=== PATIENT | female | born 1995 | race Two or more races ===

== ENCOUNTER 2024-12-17 20:42 | Inpatient (IN) | payer BC, OTHER ==
[~2024-12-17] VITALS: Ht 165.1 cm; Wt 64.7 kg
--- NOTE | 2024-12-17 21:10 | ED.PDOC ---
History of Present Illness(SKN HPI Comments PATIENT C/O A BEE STING TO RIGHT BICEPT X2 DAYS. DENIES SOB. SWELLING NOTED TO RIGHT ARM. DENIES NUMBNESS OR WEAKNESS FEVER, CHILLS, THROAT SWELLING, DIFFICULTY BREATHING, NAUSEA OR VOMITING Chief Complaint: Insect Bite Time Seen by MD: 20:46 History of Present Illness: Nurses Notes, Medications, Allergies Allergies: Coded Allergies: NO KNOWN ALLERGIES (Unverified , 12/17/24) Home Meds Active Scripts Amoxicillin & Pot Clavulanate (AUGMENTIN TABLET) 875 Mg Tb, 875 MG PO BID for 3 Days, #6 TAB Prov:BREONNA FONG MD 12/19/24 Prednisone (Prednisone) 20 Mg Tab, 40 MG PO DAILY for 3 Days, #6 TAB Prov:BREONNA FONG MD 12/19/24 Information Source: Patient Past Medical History PAST MEDICAL HISTORY: Denies Surgical History: Denies all surgeries FINAL INSPECTOR PAPER History: No Pertinent FINAL INSPECTOR PAPER History Family History Family History: Reviewed,noncontributory to illness Social History Smoker: Non-Smoker Alcohol: Denies ETOH Use Drugs: Denies Drug Use Constitutional: denies: chills, diaphoresis, fatigue, fever, malaise, sweats, weakness, others EENTM: denies: blurred vision, double vision, ear bleeding, ear discharge, ear drainage, ear pain, ear ringing, eye pain, eye redness, hearing loss, mouth pain, mouth swelling, nasal discharge, nose bleeding, nose congestion, nose pain, photophobia, tearing, throat pain, throat swelling, voice changes, others Respiratory: denies: cough, hemoptysis, orthopnea, SOB at rest, shortness of breath, SOB with excertion, stridor, wheezing, others Cardiovascular: denies: chest pain, dizzy spells, diaphoresis, Dyspnea on exertion, edema, irregular heart beat, left arm pain, lightheadedness, palpitations, PND, syncope, others Gastrointestinal: denies: abdomen distended, abdominal pain, blood streaked bowels, constipated, diarrhea, dysphagia, difficulty swallowing, hematemesis, melena, nausea, poor appetite, poor fluid intake, rectal bleeding, rectal pain, vomiting, others Genitourinary: denies: abnormal vagina bleeding, burning, dyspareunia, dysuria, flank pain, frequency, hematuria, incontinence, pain, , vagina discharge, urgency, others Neurological: denies: dizziness, fainting, headache, left sided numbness, left sided weakness, numbness, paresthesia, pre-existing deficit, right sided numbness, right sided weakness, seizure, speech problems, tingling, tremors, weakness, others Musculoskeletal: reports: muscle pain, others (LEFT UPPER ARM SWELLING); denies: back pain, gout, joint pain, joint swelling, muscle stiffness, neck pain Integumetry: reports: wounds (LEFT BICEP); denies: bruises, change in color, change in hair/nails, dryness, laceration, lesions, lumps, rash, others Allergic/Immunocompromised: denies: Difficulty Healing, Frequent Infections, Hives, Itching, others Hematologic/Lymphatic: denies: anemia, blood clots, easy bleeding, easy bruising, swollen glands, others Endocrine: denies: excessive hunger, excessive sweating, excessive thirst, excessive urination, flushing, intolerance to cold, intolerance to heat, unexplained weight gain, unexplained weight loss, others Psychiatric: denies: anxiety, bipolar disorder, depression, hopeless, panic disorder, schizophrenia, sleepless, suicidal, others Physical Exam General Appearance: No Apparent Distress, Normal HEENT: Normal ENT Inspection, Pharynx Normal, TMs Normal Neck: Full Range of Motion, Non-Tender Respiratory: Lungs Clear, No Respiratory Distress, Normal Breath Sounds Cardiovascular: No Edema, No JVD, No Murmur, No Gallop, Normal Peripheral Pulses, Regular Rate/Rhythm Breast Exam: Deferred Gastrointestinal: No Organomegaly, Non Tender, No Pulsatile Mass, Normal Bowel Sounds, Soft Genitalia: Deferred Pelvic: Deferred Rectal: Deferred Extremities: Normal capillary refill, Normal inspection, Normal range of motion, Non-tender, No pedal edema Musculoskeletal : Apperance: Normal Neurologic: Alert, No Motor Deficits, Normal Affect, Normal Mood, No Sensory Deficits Cerebellar Function: Normal Reflexes: Normal Skin: Dry, Normal Color, Warm, Wounds (RIGHT ANTERIOR BICEP NOTED PUNCTURE WOUND WITH SURROUNDING MODERATE EDEMA EXTENDING TO ELBOW AND FORERAM MODERATE TENDERNESS TRACE ERYTHEMA NO NOTED DRAINAGE OR FOREIGN BODY/STINGER DECREASE MOTOR DUE TO EDEMA AT ELBOW. STRENGTH AND SENSORY INTACT POSITIVE RADIAL PULSE) Lymphatic: No Adenopathy Was a procedure done? Was a procedure done?: No Differential Diagnosis (INTG) Differential Diagnosis: Cellulitis, Insect Envenomation, Puncture Wound Differential Diagnosis: Abscess X-Ray, Labs, Meds, VS Vital Signs Date Time Temp Pulse Resp B/P (MAP) Pulse Ox O2 Delivery O2 Flow Rate FiO2 12/18/24 04:34 98.1 58 18 107/70 (82) 97 98.1 12/18/24 00:15 98.5 55 15 107/62 (77) 99 98.5 12/17/24 21:08 97.8 62 18 116/69 (85) 99 97.8 Lab Test 12/18/24 00:40 Range/Units White Blood Count 5.2 4.4-10.8 10^3/uL Red Blood Count 4.33 4.0-5.20 10^6/uL Hemoglobin 13.0 12.2-16.2 g/dL Hematocrit 39.2 36.0-46.0 % Mean Corpuscular Volume 90.5 80.0-100.0 fL Mean Corpuscular Hemoglobin 30.1 28.0-32.0 pg Mean Corpuscular Hemoglobin Concent 33.3 32.0-36.0 g/dL Red Cell Distribution Width 13.2 11.8-14.3 % Platelet Count 229 140-450 10^3/uL Mean Platelet Volume 9.2 6.9-10.8 fL Neutrophils (%) (Auto) 84.0 H 37.0-80.0 % Lymphocytes (%) (Auto) 12.7 10.0-50.0 % Monocytes (%) (Auto) 1.8 0.0-12.0 % Eosinophils (%) (Auto) 1.3 0.0-7.0 % Basophils (%) (Auto) 0.2 0.0-2.0 % Neutrophils # (Auto) 4.4 1.6-8.6 10 ^3/uL Lymphocytes # (Auto) 0.7 0.4-5.4 10 ^3/uL Monocytes # (Auto) 0.1 0-1.3 10 ^3/uL Eosinophils # (Auto) 0.1 0-0.8 10 ^3/uL Basophils # (Auto) 0 0-0.2 10 ^3/uL Nucleated Red Blood Cells 0.1 % Sodium Level 142 136-145 mmol/L Potassium Level 3.6 3.5-5.1 mmol/L Chloride Level 112 H 98-107 mmol/L Carbon Dioxide Level 22 20-31 mmol/L Anion Gap 8 5-15 Blood Urea Nitrogen 17 9-23 mg/dL Creatinine 0.94 0.550-1.02 mg/dL Glomerular Filtration Rate Calc 85 >90 mL/min BUN/Creatinine Ratio 18.1 10.0-20.0 Serum Glucose 103 74-106 mg/dL Calcium Level 8.5 L 8.7-10.4 mg/dL Total Bilirubin 0.5 0.2-1.0 mg/dL Aspartate Amino Transferase (AST) 24 13-40 U/L Alanine Aminotransferase (ALT) 14 7-40 U/L Alkaline Phosphatase 49 46-116 U/L Total Protein 6.6 5.7-8.2 g/dL Albumin 4.2 3.2-4.8 g/dL X-Ray, Labs, Meds, VS Comment COURSE: EXTERNAL MEDICAL RECORDS: NONE INDEPENDENT HISTORIANS: NONE SOCIAL DETERMINANTS OF HEALTH: NONE LABS ORDERED: CBC AND CMP REVIEWED AND INTERPRETED RESULTS: PENDING IMAGING ORDERED: NONE (CONSIDER CT RIGHT ARM TREATMENTS ORDERED: Solu-Medrol 125 mg IV push Benadryl 25 mg IV push Pepcid 20 mg IV push Rocephin 1 g IV piggyback Normal saline a 1000 mL bolus PATIENT'S CASE AND RESULTS HAVE BEEN DISCUSSED WITH PATIENT AND THE ED ATTENDING PHYSICIAN THEY AGREE WITH MY PLAN OF CARE: ADMIT INPATIENT FOR IV ANTIBIOTICS AND MONITORING RIGHT UPPER EXTREMITY FOR COMPARTMENT SYNDROME Time of 1ST Reevaluation: 21:09 Reevaluation 1ST: Unchanged Time of 2ND Reevaluation: 23:50 Reevaluation 2ND: Unchanged Time of 3RD Reevaluation: 03:23 Reevaluation 3RD: Unchanged Patient Education/Counseling: Diagnosis, Treatment, Prognosis, Need For Follow Up Family Education/Counseling: No Family Present SEPSIS Sepsis Screen Physician Orders Heplock Iv (12/17/24 ) Code Status (12/18/24 04:25) Oxygen Per Hour (12/18/24 04:25) Vital Signs Date Time Temp Pulse Resp B/P (MAP) Pulse Ox O2 Delivery O2 Flow Rate FiO2 12/18/24 04:34 98.1 58 18 107/70 (82) 97 98.1 12/18/24 00:15 98.5 55 15 107/62 (77) 99 98.5 12/17/24 21:08 97.8 62 18 116/69 (85) 99 97.8 Laboratory Tests Test 12/18/24 00:40 White Blood Count 5.2 10^3/uL (4.4-10.8) Departure 1 Departure Time of Disposition: 00:05 Impression: Primary Impression: Bite or sting by insect with infection Additional Impression: Edema of right upper extremity Disposition: ADMITTED INPATIENT Condition: Stable e-Prescriptions Amoxicillin & Pot Clavulanate (AUGMENTIN TABLET) 875 Mg Tb 875 MG PO BID for 3 Days, #6 TAB Prov: BREONNA FONG MD 12/19/24 Prednisone (Prednisone) 20 Mg Tab 40 MG PO DAILY for 3 Days, #6 TAB Prov: BREONNA FONG MD 12/19/24 Discharged With: Self Critical Care Note Critical Care Time?: No Stability Stability form required: ANNALISE Cee Dec 17, 2024 21:10
[2024-12-17] MEDS: FAMOTIDINE (10MG/ML) 2ML VL IV ONE (21:59)
[2024-12-17] MEDS: methylPREDNISolone SOD SUCC 125 MG/2 ML VL IV ONE (21:59)
[2024-12-17] MEDS: diphenhdrAMINE HCL 50 MG/1 ML VL IV ONE (22:00)
[2024-12-17] MEDS: cefTRIAXone 1GM/50ML D5W 50 ML IV ONE (22:00)
[2024-12-17] MEDS: SODIUM CHLORIDE 0.9% 1,000 ML IV ONE (22:16)
[2024-12-18 00:15] VITALS: BP 107/62; PULSE 55; RESP 15; TEMP 98.5; O2SAT 99
[2024-12-18 00:55] LABS: Hematocrit 39.2 % (36.0-46.0); Hemoglobin 13.0 g/dL (12.2-16.2); Mean Corpuscular Hemoglobin 30.1 pg (28.0-32.0); Mean Corpuscular Volume 90.5 fL (80.0-100.0); Nucleated Red Blood Cells % 0.1 %
[2024-12-18 01:07] LABS: Alanine Aminotransferase 14 U/L (7-40); Albumin 4.2 g/dL (3.2-4.8); Alkaline Phosphatase 49 U/L (46-116); Anion Gap 8 (5-15); BUN/Creatinine Ratio 18.1 (10.0-20.0); Blood Urea Nitrogen 17 mg/dL (9-23); Carbon Dioxide 22 mmol/L (20-31); Glucose 103 mg/dL (74-106); Potassium 3.6 mmol/L (3.5-5.1); Sodium 142 mmol/L (136-145); Total Protein 6.6 g/dL (5.7-8.2)
[2024-12-18 01:08] LABS: Bilirubin, Total 0.5 mg/dL (0.2-1.0)
[2024-12-18 01:18] LABS: Calcium 8.5 mg/dL (8.7-10.4); Chloride 112 mmol/L (98-107)
[2024-12-18] MEDS: KETOROLAC TROMETH 30 MG/ML 1ML VIAL IV ONE (04:05)
[2024-12-18] MEDS: CLINDAMYCIN 600MG IV 50 ML IV ONE (04:06)
[2024-12-18] MEDS ORDERED: ACETAMINOPHEN 325 MG TAB PO PRN (04:30)
[2024-12-18] MEDS ORDERED: ONDANSETRON HCL 4 MG/2 ML VIAL IV PRN (04:30)
[2024-12-18] MEDS ORDERED: HYDROcodone-ACET 5/325MG TAB PO PRN (04:30)
[2024-12-18] MEDS ORDERED: VANCOMYCIN PER PHARMACY 0 MG IV SCH (04:30)
[2024-12-18] MEDS ORDERED: DOCUSATE SOD 100 MG CAP PO PRN (04:30)
[2024-12-18] MEDS ORDERED: MORPHINE SULFATE INJ 2 MG/ml SYRG IV PRN ×2 (04:30→05:45)
[2024-12-18 04:34] VITALS: BP 107/70; PULSE 58; RESP 18; TEMP 98.1; O2SAT 97
[2024-12-18] MEDS ORDERED: NITROGLYCERIN 0.4 MG SL TAB SL PRN (05:45)
--- NOTE | 2024-12-18 05:46 | DVHHP2 ---
History of Present Illness Reason for Visit: Bite or sting by insect with infection History of Present Illness The patient is a 29-year-old female who denies past medical history presented to [facility] with complaint of bee sting to the right biceps for the past 2 days. Patient reports she has been experiencing severe pain associated with tenderness, swelling, getting worse today that prompted this visit. Patient was seen and evaluated in the ED, laboratory data shows WBC 5.2, platelets 229, sodium 142, potassium 3.6, BUN 17, creatinine 0.94, glucose 103, calcium 8.5, blood pressure 107/62, heart rate 58, temperature 98.5 F, O2 saturation 99% room air. Patient was given IV steroid, started on IV antibiotic regimen vancomycin, please see medication orders section in the computer. On my assessment, mother at bedside, patient denied chest pain, no headache, no dizziness, no diaphoresis, no shortness of breaths, no nausea, no vomiting, no fever, no chills. Patient was admitted for further evaluation and medical management. Past Medical History Denies past medical history Past Surgical History Denies all surgeries Family History Reviewed, noncontributory to the management of this case. Past Social History The patient lives at home, denies smoking, alcohol or illicit drugs abuse. Review of Systems Constitutional: No: Fever, Chills, Sweats, Weakness, Malaise, Other Eyes: No: Pain, Vision change, Conjunctivae inflammation, Eyelid inflammation, Other, Redness ENT: No: Ear pain, Ear discharge, Nose pain, Nose discharge, Nose congestion, Mouth pain, Mouth swelling, Throat pain, Throat swelling, Other Respiratory: No: Cough, Dry, Shortness of breath, SOB with excertion, Wheezing, Hemoptysis, Pleuritic Pain, Sputum, Wheezing, Other Cardiovascular: No: Chest Pain, Palpitations, Orthopnea, Paroxysmal Noc. Dyspnea, Edema, Lt Headedness, Other Gastrointestinal: No: Nausea, Vomiting, Abdominal Pain, Diarrhea, Constipation, Melena, Hematochezia, Other Genitourinary: No Dysuria, No Frequency, No Incontinence, No Hematuria, No Retention, No Other Musculoskeletal: other (Right upper arm swelling); No: neck pain, shoulder pain, arm pain, back pain, hand pain, leg pain, foot pain Skin: Other (Right bicep wound); No: Rash, Lesions, Jaundice, Bruising Neurological: No: Weakness, Numbness, Incoordination, Change in speech, Confusion, Seizures, Other Allergies: Coded Allergies: NO KNOWN ALLERGIES (Unverified , 12/17/24) Medications Current Medications Medications Dose Ordered Sig/Kelley Route Start Time Stop Time Status Last Admin Dose Admin Methylprednisolone Sodium Succinate 40 mg Q8HR IV 12/18/24 06:00 Famotidine 20 mg Q12HR IV 12/18/24 10:00 Vancomycin HCl 0 ml @ 0 mls/hr UD IV 12/18/24 04:30 UNV Ceftriaxone Sodium 50 ml @ 100 mls/hr DAILY@09 IV 12/18/24 09:00 Diphenhydramine HCl 25 mg Q4HP PRN IV 12/18/24 04:30 Sodium Chloride 10 ml Q8HR IV 12/18/24 06:00 Acetaminophen/ Hydrocodone Bitart 1 tab Q4HP PRN PO 12/18/24 04:30 Ondansetron HCl 4 mg Q4HP PRN IV 12/18/24 04:30 Docusate Sodium 100 mg BIDPRN PRN PO 12/18/24 04:30 Acetaminophen 650 mg Q6HP PRN PO 12/18/24 04:30 Morphine Sulfate 2 mg Q4HPRN PRN IV 12/18/24 04:30 Exam Vital Signs Vital Signs Date Time Temp Pulse Resp B/P (MAP) Pulse Ox O2 Delivery O2 Flow Rate FiO2 12/18/24 04:34 98.1 58 18 107/70 (82) 97 98.1 General Appearance: Alert, Oriented X3, Cooperative, No acute distress HEENT: Atraumatic, PERRLA, EOMI, Mucous membr. moist/pink Respiratory: Clear to auscultation, Normal air movement Cardiovascular: Regular rate, Normal S1, Normal S2, No murmurs Abdominal: Normal bowel sounds, Soft, No tenderness, No hepatospenomegaly, No masses Extremities: No clubbing, No cyanosis, No edema, Normal pulses, Other (Right upper extremity tenderness/swelling.) Skin: No rashes, No breakdown, No significant lesion Neuro: Normal gait, Normal speech, Normal tone, Sensation intact, Cranial nerves 3-12 NL, Reflexes 2+, Other (Limited right upper extremity range of motion) Psych/Mental Status: Mental status NL, Mood NL Labs/Xrays Labs Test 12/18/24 00:40 Range/Units White Blood Count 5.2 4.4-10.8 10^3/uL Red Blood Count 4.33 4.0-5.20 10^6/uL Hemoglobin 13.0 12.2-16.2 g/dL Hematocrit 39.2 36.0-46.0 % Mean Corpuscular Volume 90.5 80.0-100.0 fL Mean Corpuscular Hemoglobin 30.1 28.0-32.0 pg Mean Corpuscular Hemoglobin Concent 33.3 32.0-36.0 g/dL Red Cell Distribution Width 13.2 11.8-14.3 % Platelet Count 229 140-450 10^3/uL Mean Platelet Volume 9.2 6.9-10.8 fL Neutrophils (%) (Auto) 84.0 H 37.0-80.0 % Lymphocytes (%) (Auto) 12.7 10.0-50.0 % Monocytes (%) (Auto) 1.8 0.0-12.0 % Eosinophils (%) (Auto) 1.3 0.0-7.0 % Basophils (%) (Auto) 0.2 0.0-2.0 % Neutrophils # (Auto) 4.4 1.6-8.6 10 ^3/uL Lymphocytes # (Auto) 0.7 0.4-5.4 10 ^3/uL Monocytes # (Auto) 0.1 0-1.3 10 ^3/uL Eosinophils # (Auto) 0.1 0-0.8 10 ^3/uL Basophils # (Auto) 0 0-0.2 10 ^3/uL Nucleated Red Blood Cells 0.1 % Sodium Level 142 136-145 mmol/L Potassium Level 3.6 3.5-5.1 mmol/L Chloride Level 112 H 98-107 mmol/L Carbon Dioxide Level 22 20-31 mmol/L Anion Gap 8 5-15 Blood Urea Nitrogen 17 9-23 mg/dL Creatinine 0.94 0.550-1.02 mg/dL Glomerular Filtration Rate Calc 85 >90 mL/min BUN/Creatinine Ratio 18.1 10.0-20.0 Serum Glucose 103 74-106 mg/dL Calcium Level 8.5 L 8.7-10.4 mg/dL Total Bilirubin 0.5 0.2-1.0 mg/dL Aspartate Amino Transferase (AST) 24 13-40 U/L Alanine Aminotransferase (ALT) 14 7-40 U/L Alkaline Phosphatase 49 46-116 U/L Total Protein 6.6 5.7-8.2 g/dL Albumin 4.2 3.2-4.8 g/dL Right upper extremity x-ray pending SEPSIS Sepsis Screen Date sepsis recognized/suspect: Dec 17, 2024 Time Sepsis recognized/suspect: 2109 Recent Procedure: No On Antibiotic Therapy: No Respiratory Rate >20: No Heart Rate >90: No Temp<36 C (96.8 F) or >38.3 C: No SBP <90 or MAP <65 mmHG: No New Acute Mental Status Change: No Is the patient on CPAP, BIPAP,: No Physician Orders Methylprednisolone Sod Succ (Solu Medrol (12/18/24 06:00) Famotidine Injection (Pepcid Injection) (12/18/24 10:00) Vancomycin Per Pharmacy (12/18/24 04:30) Ceftriaxone 1gm/50ml D5w (Rocephin) (12/18/24 09:00) Diphenhdramine Injection (Benadryl Injec (12/18/24 04:30) Allergies (12/18/24 04:25) Code Status (12/18/24 04:25) Sodium Chloride Lock (Saline Lock Ns) (12/18/24 06:00) Oxygen Per Hour (12/18/24 04:25) Hydrocodone-Acet 5/325mg Tab ([place] 5/32 (12/18/24 04:30) Ondansetron Hcl (Zofran) (12/18/24 04:30) Docusate Sodium Capsule (Colace Capsule) (12/18/24 04:30) Complete Blood Count (12/19/24 04:00) Comprehensive Metabolic Panel (12/19/24 04:00) Cardiac Diet-2gna,Lofat,Lochol (12/18/24 Breakfast) Condition: Serious (12/18/24 04:25) Acetaminophen Tablet (Tylenol Tablet) (12/18/24 04:30) Bedrest With Bathroom Privileg (12/18/24 04:25) Morphine Sulfate Injection (12/18/24 04:30) Sequential Compression Device (12/18/24 ) Admit (12/18/24 05:44) Nitroglycerin Sublingual (Ntrostat Subli (12/18/24 05:45) Morphine Sulfate Injection (12/18/24 05:45) Notify Of Changes From Base (12/18/24 05:44) Emergency Dysrhythmia Protocol (12/18/24 05:44) Oxygen By Nasal Cannula (12/18/24 05:44) Vital Signs Date Time Temp Pulse Resp B/P (MAP) Pulse Ox O2 Delivery O2 Flow Rate FiO2 12/18/24 04:34 98.1 58 18 107/70 (82) 97 98.1 12/18/24 00:15 98.5 55 15 107/62 (77) 99 98.5 Laboratory Tests Test 12/18/24 00:40 White Blood Count 5.2 10^3/uL (4.4-10.8) Medications Medications Dose Ordered Sig/Kelley Route Start Time Stop Time Status Last Admin Dose Admin Ceftriaxone Sodium 50 ml @ 100 mls/hr ONCE ONCE IV 12/17/24 21:15 12/17/24 21:44 DC 12/17/24 22:00 100 MLS/HR Clindamycin Phosphate 50 ml @ 50 mls/hr ONCE ONCE IV 12/18/24 00:45 12/18/24 01:44 DC 12/18/24 04:06 50 MLS/HR Diphenhydramine HCl 50 mg ONCE ONCE IV 12/17/24 21:15 12/17/24 21:16 DC 12/17/24 22:00 50 MG Famotidine 20 mg ONCE ONCE IV 12/17/24 21:15 12/17/24 21:16 DC 12/17/24 21:59 20 MG Ketorolac Tromethamine 30 mg ONCE ONCE IV 12/18/24 00:45 12/18/24 00:46 DC 12/18/24 04:05 30 MG Methylprednisolone Sodium Succinate 125 mg ONCE ONCE IV 12/17/24 21:15 12/17/24 21:16 DC 12/17/24 21:59 125 MG Sodium Chloride 1,000 ml @ 1,000 mls/hr Q1H ONCE IV 12/17/24 22:15 12/17/24 23:14 DC 12/17/24 22:16 1,000 MLS/HR Assessment/Plan Assessment/Plan Bite or sting by insect with infection Edema of right upper extremity Plan 1. Admit to med surge unit 2. Breathing treatment 3. Pain control management 4. IV antibiotic management 5. Management of fluids and electrolytes 6. Consultation for hospitalist 7. Diagnostic test right arm x-ray 8. DVT prophylaxis on SCDs 9. Repeat labs CBC, CMP in a.m. 10. Continue with current medical management 11. Treatment plan discussed with patient and RN. Patient verbalized understanding. Plan discussed with: Patient, Other (RN) My Orders Orders - CASANDRA RAMIREZ DNP Procedure Category Date Status Time Methylprednisolone PHA 12/18/24 In Process Sod Succ (Solu Medrol 06:00 Famotidine Injection PHA 12/18/24 In Process (Pepcid Injection) 10:00 Vancomycin Per PHA 12/18/24 Pending Pharmacy 04:30 Ceftriaxone 1gm/50ml PHA 12/18/24 In Process D5w (Rocephin) 09:00 Diphenhdramine PHA 12/18/24 In Process Injection (Benadryl 04:30 Allergies LISA 12/18/24 In Process 04:25 Code Status CODE 12/18/24 Transmitted 04:25 Sodium Chloride Lock PHA 12/18/24 In Process (Saline Lock Ns) 06:00 Oxygen Per Hour RT 12/18/24 Transmitted 04:25 Hydrocodone-Acet PHA 12/18/24 In Process 5/325mg Tab ([place] 04:30 Ondansetron Hcl PHA 12/18/24 In Process (Zofran) 04:30 Docusate Sodium PHA 12/18/24 In Process Capsule (Colace 04:30 Complete Blood Count LAB 12/19/24 Verified 04:00 Comprehensive LAB 12/19/24 Verified Metabolic Panel 04:00 Cardiac DIET 12/18/24 Transmitted Diet-2gna,Lofat,Lochol Breakfast Condition: Serious LISA 12/18/24 In Process 04:25 Acetaminophen Tablet PHA 12/18/24 In Process (Tylenol Tablet) 04:30 Bedrest With Bathroom LISA 12/18/24 In Process Privileg 04:25 Morphine Sulfate PHA 12/18/24 In Process Injection 04:30 Sequential LISA 12/18/24 In Process Compression Device Admit ADMIT 12/18/24 Transmitted 05:44 Nitroglycerin PHA 12/18/24 Transmitted Sublingual (Ntrostat 05:45 Morphine Sulfate PHA 12/18/24 Transmitted Injection 05:45 Notify Of Changes LISA 12/18/24 Transmitted From Base 05:44 Emergency Dysrhythmia [facility] 12/18/24 Transmitted Protocol 05:44 Oxygen By Nasal RT 12/18/24 Transmitted Cannula 05:44 Problem List: (1) Bite or sting by insect with infection (2) Edema of right upper extremity Date of Service: Dec 18, 2024 Billing Provider: CASANDRA RAMIREZ DNP Common Visit Codes: [id number] INP/OBS CARE (HIGH) CASANDRA RAMIREZ DNP Dec 18, 2024 05:46
[2024-12-18] MEDS: SODIUM CHLOR 0.9% PF (SALINE LOCK) 10ML VIAL/SYR IV SCH (06:00)
[2024-12-18] MEDS: methylPREDNISolone SOD SUCC 40 MG/ML VL IV SCH (07:03)
[2024-12-18 08:01] VITALS: PULSE 64; RESP 16; O2SAT 100
[2024-12-18] MEDS: cefTRIAXone 1GM/50ML D5W 50 ML IV SCH (10:41)
[2024-12-18] MEDS: diphenhdrAMINE HCL 50 MG/1 ML VL IV PRN (10:43)
[2024-12-18] MEDS: FAMOTIDINE (10MG/ML) 2ML VL IV SCH (11:07)
--- NOTE | 2024-12-18 15:23 | DVHPN2 ---
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 physical exam aox4 PERLLA MMM no stridor, nor mucosal edema normal lips clear breath sounds s1 s2 rrr abdomen soft no le edema bee sting yoan on inner RUE mild erythema surrounding area crossing elbow swelling surrounding area to mid forearm distal radial pulse normal, DIRECTOR TALENT normal labs ekg imaging reviewed assessment and plan bee sting cellulitis? compartment syndrome rule out airway watch iv steroid ceftriaxone antihistamine diet reg dvt ppx ambulatory full code Plan discussed with: Patient Date of Service: Dec 18, 2024 Billing Provider: BREONNA FONG MD Common Visit Codes: [id number] INP/OBS CARE(MOD) BREONNA FONG MD Dec 18, 2024 15:23
[2024-12-18 18:51] VITALS: BP 99/60; PULSE 92; RESP 18; TEMP 98.3; O2SAT 98
[2024-12-18 20:00] VITALS: RESP 18
[2024-12-18 21:00] VITALS: BP 92/57; PULSE 68; RESP 12; TEMP 97.4; O2SAT 100
[2024-12-19 01:00] VITALS: BP 111/66; PULSE 74; RESP 16; TEMP 97.9; O2SAT 98
[2024-12-19 05:00] VITALS: BP 97/56; PULSE 84; RESP 12; TEMP 97.7; O2SAT 97
[2024-12-19 05:44] LABS: Hematocrit 40.0 % (36.0-46.0); Hemoglobin 13.5 g/dL (12.2-16.2); Mean Corpuscular Hemoglobin 30.3 pg (28.0-32.0); Mean Corpuscular Volume 89.6 fL (80.0-100.0); Nucleated Red Blood Cells % 0.1 %
[2024-12-19 06:17] LABS: Alanine Aminotransferase 16 U/L (7-40); Albumin 4.2 g/dL (3.2-4.8); Alkaline Phosphatase 48 U/L (46-116); Anion Gap 10 (5-15); BUN/Creatinine Ratio 15.3 (10.0-20.0); Bilirubin, Total 0.7 mg/dL (0.2-1.0); Blood Urea Nitrogen 13 mg/dL (9-23); Calcium 9.9 mg/dL (8.7-10.4); Carbon Dioxide 23 mmol/L (20-31); Chloride 110 mmol/L (98-107); Glucose 98 mg/dL (74-106); Potassium 3.6 mmol/L (3.5-5.1); Sodium 143 mmol/L (136-145); Total Protein 6.7 g/dL (5.7-8.2)
[2024-12-19 08:00] VITALS: RESP 16
[2024-12-19 08:37] VITALS: BP 96/59; PULSE 76; RESP 16; TEMP 97.4; O2SAT 98
[2024-12-19] MEDS: methylPREDNISolone SOD SUCC 40 MG/ML VL IV SCH (09:20)
[2024-12-19] MEDS ORDERED: AUG875T PO (10:10)
[2024-12-19] MEDS ORDERED: PRED20TA2 PO (10:10)
--- NOTE | 2024-12-19 13:56 | DVHDS2 ---
Discharge Summary Date of Admission Dec 18, 2024 at 05:44 Date of Discharge: Dec 19, 2024 Labs/Diagnostic Data: Laboratory Results Test 12/19/24 05:23 White Blood Count 9.5 10^3/uL (4.4-10.8) Red Blood Count 4.46 10^6/uL (4.0-5.20) Hemoglobin 13.5 g/dL (12.2-16.2) Hematocrit 40.0 % (36.0-46.0) Mean Corpuscular Volume 89.6 fL (80.0-100.0) Mean Corpuscular Hemoglobin 30.3 pg (28.0-32.0) Mean Corpuscular Hemoglobin Concent 33.8 g/dL (32.0-36.0) Red Cell Distribution Width 12.9 % (11.8-14.3) Platelet Count 247 10^3/uL (140-450) Mean Platelet Volume 9.0 fL (6.9-10.8) Neutrophils (%) (Auto) 67.5 % (37.0-80.0) Lymphocytes (%) (Auto) 22.2 % (10.0-50.0) Monocytes (%) (Auto) 8.5 % (0.0-12.0) Eosinophils (%) (Auto) 1.2 % (0.0-7.0) Basophils (%) (Auto) 0.6 % (0.0-2.0) Neutrophils # (Auto) 6.4 10 ^3/uL (1.6-8.6) Lymphocytes # (Auto) 2.1 10 ^3/uL (0.4-5.4) Monocytes # (Auto) 0.8 10 ^3/uL (0-1.3) Eosinophils # (Auto) 0.1 10 ^3/uL (0-0.8) Basophils # (Auto) 0.1 10 ^3/uL (0-0.2) Nucleated Red Blood Cells 0.1 % Sodium Level 143 mmol/L (136-145) Potassium Level 3.6 mmol/L (3.5-5.1) Chloride Level 110 mmol/L (98-107) Carbon Dioxide Level 23 mmol/L (20-31) Anion Gap 10 (5-15) Blood Urea Nitrogen 13 mg/dL (9-23) Creatinine 0.85 mg/dL (0.550-1.02) Glomerular Filtration Rate Calc 96 mL/min (>90) BUN/Creatinine Ratio 15.3 (10.0-20.0) Serum Glucose 98 mg/dL (74-106) Calcium Level 9.9 mg/dL (8.7-10.4) Total Bilirubin 0.7 mg/dL (0.2-1.0) Aspartate Amino Transferase (AST) 20 U/L (13-40) Alanine Aminotransferase (ALT) 16 U/L (7-40) Alkaline Phosphatase 48 U/L (46-116) Total Protein 6.7 g/dL (5.7-8.2) Albumin 4.2 g/dL (3.2-4.8) Other Laboratory Tests 12/19/24 05:23 Brief Hx & Hospital Course: 29 F with no sig PMH 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 started on iv ceft and iv solumedrol in ED. on my assessment significant improvement observed in 24 hours, airway patent. no major signs of infection. slight swelling seen around mid arm to mid forearm, noncircumferential, no erythema. compartment syndrome ruled out. complete course with po meds. Condition at Discharge: Good Final Diagnosis/Problems List bee sting cellulitis? compartment syndrome ruled out anaphylaxis ruled out Discharge Disposition: Home Discharge Instruct/Medications Diet: Regular Activity: No Restrictions, As Tolerated Medications: augmentin to complete course prednisone Scheduled Amoxicillin & Pot Clavulanate (Augmentin Tablet), 875 MG PO BID Prednisone (Prednisone), 40 MG PO DAILY Discharge Statement: "Patient was advised to return to the ER or call 911 if any headaches, dizziness, shortness of breath, chest pain, abdominal pain, bleeding, fevers, or worsening of medical condition. Patient was counseled about treatment plan, medications, possible side effects, patientverbalized understanding. All questions were answered to the best of my ability. This discharge took greater then 30 minutes in planning, reviewing documentation, counseling the patient, and discussing with other team members." ASSESSMENT ASSESSMENT Assessment bee sting RUE edema Date of Service: Dec 19, 2024 Billing Provider: BREONNA FONG MD Common Visit Codes: [id number] DISCH DAY >30min BREONNA FONG MD Dec 19, 2024 13:56
== END 2024-12-19 14:05 | disposition home or self-care (01) | DRG 603 ==
LOC: ER 20:42 → OVERFLOW 12-18 05:44 → CENTRAL 12-18 18:46
PROVIDERS: ADMIT Student in an Organized Health Care Education/Training Program; ATTEND Student in an Organized Health Care Education/Training Program
DX: L03.113 Cellulitis of right upper limb (principal); T63.441A Toxic effect of venom of bees, accidental (unintentional), initial encounter; Y92.89 Other specified places as the place of occurrence of the external cause
CPT/HCPCS: 36415; 80053; 85025; 96365; 96375; G0378; J1885; J3490